=== PATIENT | male | born 1930 | race Caucasian/White ===

== ENCOUNTER 2016-06-19 14:20 | Emergency (ER) | payer MEDICARE ==
[2016-06-19] MEDS ORDERED: 0.9 % SODIUM CHLORIDE 1,000 ML BAG IV ONE ×2 (14:50→16:24)
--- NOTE | 2016-06-19 15:12 | Emergency Department Record ---
History of Present Illness - General Chief complaint: Weakness Stated complaint: WEAKNESS Time Seen by Provider: 06/19/16 15:07 Source: Patient, EMS Mode of Arrival: EMS Limitations: No limitations - History of Present Illness Initial comments: The patient is here due to not feeling well for at least 2 weeks. He has had generalized weakness and has been unable to walk due to the weakness and a worsening of his chronic back pain. The patient has been sitting in his chair at home for at least 2 weeks and has been unable to ambulate. He has been urinating and defecating in the chair and just sitting in it. The patient denies any AP, CP, SOB, TIN or NUNEZ. He is having some pain when his genitals are touched due to the severe skin irritation. MD Complaint: Generalized weakness Onset/Timin -: Week(s) Associated Symptoms: Denies other symptoms - Related Data Home Medications Medication Instructions Recorded Confirmed Last Taken Lisinopril/Hydrochlorothiazide 1 each PO DAILY 06/19/16 06/19/16 06/18/16 [Lisinopril-Hctz 20-12.5 mg Tab] Metoprolol Succinate [Toprol Xl] 50 mg PO DAILY 06/19/16 06/19/16 06/18/16 Oxybutynin Chloride [Ditropan Xl] 15 mg PO DAILY 06/19/16 06/19/16 06/18/16 Allergies Allergy/AdvReac Type Severity Reaction Status Date / Time No Known Drug Allergies Allergy Verified 06/19/16 18:18 Travel Screening - Travel/Exposure Within Last 30 Days Have you traveled within the last 30 days?: No - Travel/Exposure Within Last Year Have you traveled outside the [place] in the last year?: No - Additonal Travel Details Have you been exposed to anyone with a communicable illness?: No - Travel Symptoms Symptom Screening: None Review of Systems Constitutional: Reports: Malaise. Denies: Chills, Fever Eyes: Denies: Eye discharge ENT: Denies: Congestion Respiratory: Denies: Cough, Dyspnea Cardiovascular: Denies: Arrhythmia Endocrine: Reports: Fatigue Gastrointestinal: Denies: Diarrhea, Vomiting Genitourinary: Denies: Dysuria Musculoskeletal: Denies: Arthralgia Skin: Denies: Bruising Past Medical History - SOCIAL HISTORY Smoking Status: Unknown if ever smoked Alcohol Use: None Drug Use: None - RESPIRATORY Hx Respiratory Disorders: No - CARDIOVASCULAR Hx Cardio Disorders: Yes Hx Hypertension: Yes - NEURO Hx Neuro Disorders: Yes Hx Dementia: Yes - GI Hx GI Disorders: No - Hx Genitourinary Disorders: Yes Hx Prostate Problems: Yes (cancer) Comment:: incontinent - ENDOCRINE Hx Endocrine Disorders: No - MUSCULOSKELETAL Hx Musculoskeletal Disorders: Yes - PSYCH Hx Psych Problems: No - HEMATOLOGY/ONCOLOGY Hx Hematology/Oncology Disorders: Yes Hx Cancer: Yes Hx Radiation Therapy: Yes Family Medical History Any Significant Family History?: No Family Hx Comment (NOT TO BE USED IN PLACE OF ITEMS BELOW): unsure Physical Exam - General General Appearance: Alert, Oriented x3, Cooperative, No acute distress (The patient is very hard of hearing.) - Head Head exam: Atraumatic, Normocephalic, Normal inspection - Eye Eye exam: Normal appearance, PERRL - ENT Throat exam: Normal inspection. negative: Tonsillar erythema, Tonsillar exudate - Neck Neck exam: Normal inspection, Full ROM. negative: Tenderness - Respiratory Respiratory exam: Normal lung sounds bilaterally. negative: Respiratory distress - Cardiovascular Cardiovascular Exam: Regular rate, Normal rhythm, Normal heart sounds - GI/Abdominal GI/Abdominal exam: Soft, Normal bowel sounds. negative: Tenderness - Rectal Rectal exam: Tenderness. negative: Normal inspection (There is severe skin irritation and bedsores to the sacral region with prob grade 3-4 bed sores.) - exam: negative: Normal inspection (There is moderate foreskin edema with severe skin irritation to the penis and scrotum. ) - Extremities Extremities exam: negative: Normal inspection - Neurological Neurological exam: Abnormal gait, Alert, Motor sensory deficit (The lower extremities are 4/5 motor bilaterally. ), Oriented X3. negative: Normal gait - Psychiatric Psychiatric exam: negative: Agitated, Anxious, Depressed Course Vital Signs 06/19/16 14:42 Temperature 98.3 F Pulse Rate 98 H Respiratory 18 Rate Blood Pressure 163/74 Pulse Ox 98 - Reevaluation(s) Reevaluation #1: The patient is doing well. He denies any pain or discomfort. I did consult with the nursing staff here at [facility] and they ALL felt the patient needed more wound care than could be provided here at [facility]. I also agreed with nursing and felt the patient needed more care than we could provide here at [facility]. After consultation with the patient and family they all would like to go to [facility] in [facility]. 06/19/16 17:24 06/20/16 07:17 Reevaluation #2: The patient is resting comfortably. I did discuss the case with Dr. Springer and she does accept the patient as a direct admission to [facility] in [place]. 06/19/16 17:52 Reevaluation #3: We have been informed that [facility] may not have a bed for the patient until Tomorrow. I did discuss the case with Dr. Flores and she is willing to admit the patient overnight here at [facility] and will evaluate the patient tomorrow for transfer. I also did discuss the case with Dr. Roman and he will be willing to consult on the patient due to the decub issue and the need for debridement if the patient is not able to be transferred. 06/19/16 19:47 06/20/16 07:21 Medical Decision Making - Data Complexity MDM Data: Labs Ordered and/or Reviewed, X-Ray Ordered and/or Reviewed, EKG Ordered and/or Reviewed - Lab Data Result diagrams: 06/19/16 15:29 06/19/16 15:29 - EKG Data -: EKG Interpreted by Me (Possible Afib vs Flutter at 94. The EKG quality is not the best.) - Radiology Data Radiology results: Report reviewed (CXR: COPD with extensive arthritis.) Disposition Disposition: Transfer Clinical Impression: Pyelonephritis, acute Atrial fibrillation Qualifiers: Atrial fibrillation type: unspecified Qualified Code(s): I48.91 - Unspecified atrial fibrillation Disposition: Acute Care Hospital Transfer Transfer To: [facility] Reason For Transfer: Afib, Pylenophritis Accepting Physician: Dr. Springer. Time Discussed w/Accepting Physician: 17:52 Condition: (2) Stable Forms: Patient Portal Access Time of Disposition: 17:52
[2016-06-19 15:29] LABS: BASO % 0.2 % (0-6); EOS % 0.1 % (0-6); HEMOGLOBIN 12.4 gm/dl (14.0-18.0); MEAN CELL VOLUME 89.4 fl (81-97); MEAN CORPUSCULAR HEMOGLOBIN 28.4 pg (27-33); MEAN CORPUSCULAR HGB CONC 31.8 g/dl (32-36); MEAN PLATELET VOLUME 9.1 fl (7.4-10.4); MONO % 7.7 % (0-9); PLATELET COUNT 340 K/uL (130-400); RED BLOOD COUNT 4.36 M/uL (4.40-5.70); RED CELL DISTRIBUTION WIDTH 14.7 % (11.5-14.5); WHITE BLOOD COUNT W/O DIFF 18.3 K/uL (4.2-12.2)
[2016-06-19 15:38] LABS: INR 1.04; PROTHROMBIN TIME (PATIENT) 11.8 SECONDS (9.5-12.1)
[2016-06-19 15:39] LABS: ALBUMIN 3.7 gm/dL (3.5-5.0); ANION GAP 14.4 (7-16); BILIRUBIN,TOTAL 0.85 mg/dL (0.2-1.3); CARBON DIOXIDE 23.6 mmol/L (22-30); CREATININE 1.3 mg/dL (0.66-1.25); TOTAL PROTEIN 6.9 gm/dL (6.3-8.2)
[2016-06-19 15:51] LABS: CKMB 3.3 ug/L (0-6); TROPONIN I 0.022 ng/mL (0.00-0.034)
[2016-06-19 16:16] LABS: URINE APPEARANCE CLEAR; URINE BILIRUBIN SMALL (NEGATIVE); URINE BLOOD LARGE (NEGATIVE); URINE COLOR BROWN; URINE GLUCOSE (UA) NEGATIVE (NEGATIVE); URINE KETONE 15 mg/dL (NEGATIVE); URINE LEUKOCYTE ESTERASE MODERATE (NEGATIVE); URINE NITRITE NEGATIVE (NEGATIVE); URINE UROBILINOGEN 0.2 E.U./dL (0.20 - 1.00)
[2016-06-19 16:29] LABS: URINE BACTERIA NONE SEEN
[2016-06-19] MEDS ORDERED: CEFTRIAXONE SODIUM 1 GM in 0.9 % SODIUM CHLORIDE 100ML 100 ML IVPB ONE (16:30)
[2016-06-19] MEDS ORDERED: CLINDAMYCIN 600MG/50ML PREMIX 600 MG in DEXTROSE 1 BAG IV ONE (17:51)
[2016-06-19] MEDS ORDERED: ZINC OXIDE 28.35 GM TUBE TOP PRN (22:42)
--- NOTE | 2016-06-24 07:49 | RADIOLOGY REPORT ---
EXAM: PORTABLE CHEST HISTORY: WEAKNESS. TECHNIQUE: An AP portable view of the chest was obtained. Comparison: None. FINDINGS: The heart size is normal. Calcification and mild torsion of the aorta. Advanced degenerative change in both shoulders with chronic rotator cuff tears bilaterally. Degenerative change in the spine. No definite acute infiltrate is seen and no pleural effusion or pneumothorax evident. IMPRESSION: 1. ADVANCED DEGENERATIVE CHANGE IN BOTH SHOULDERS WITH CHRONIC ROTATOR CUFF TEARS BILATERALLY. 2. CALCIFICATION OF THE AORTA. 3. NO ACUTE INFILTRATE EVIDENT. JOB NUMBER: [id number] [facility]
== END 2016-06-19 22:53 | disposition short-term general hospital (02) ==
LOC: EDBD 14:20 → ER 14:20 → EDSEX 14:20 → ER 22:53
DX: L89.324 Pressure ulcer of left buttock, stage 4 (principal); L89.314 Pressure ulcer of right buttock, stage 4; N10 Acute pyelonephritis; R53.1 Weakness; I48.91 Unspecified atrial fibrillation; I10 Essential (primary) hypertension; F03.90 Unspecified dementia, unspecified severity, without behavioral disturbance, psychotic disturbance, mood disturbance, and anxiety
CPT/HCPCS: 71010; 80048; 80076; 81001; 82550; 82553; 84484; 85027; 85610; 85730; 87086; 87205; 93005; 93010; 96365; 96366; 99285; J7030